=== PATIENT | male | born 1955 | race Caucasian/White ===

== ENCOUNTER 2018-03-21 12:44 | Emergency (ER) | payer MEDICARE, OTHER ==
[2018-03-21 12:57] VITALS: BP 168/91
--- NOTE | 2018-03-21 13:30 | ED Physician Documentation ---
Lower Extremity Injury - HISTORIAN Historian: patient, spouse - HPI Stated Complaint: L foot pain Chief Complaint: Lower Extremity Injury Onset: hours Where: home Severity: moderate Context: fall, twist, other ("popping" sensation) Associated Symptoms:: unable to bear weight Modifying Factors:: pain on movement - ROS CONST: no problems CVS/RESP: none GI/: denies: problems urinating, nausea, vomiting, other MS/SKIN/LYMPH: none NEURO: denies: headache, head injury, anxiety, depression - PAST HX Past History: other (Parkinson's; depression) Allergies/Adverse Reactions: Allergies Allergy/AdvReac Type Severity Reaction Status Date / Time codeine Allergy Verified 03/21/18 12:57 Home Medications: Ambulatory Orders Medication Instructions Recorded Carbidopa/Levodopa [Carbidopa-Levo 1 tab PO DAILY 03/21/18 25-100 mg Odt] - SOCIAL HX Smoking History: non-smoker - FAMILY HX Family History: denies: none - VITAL SIGNS Vital Signs: Vital Signs Temp Pulse Resp BP Pulse Ox 97.2 F L 82 17 168/91 95 03/21/18 14:00 03/21/18 14:00 03/21/18 14:00 03/21/18 14:00 03/21/18 14:00 - REVIEWED ASSESSMENTS Nursing Assessment Reviewed: Yes Vitals Reviewed: Yes Progress - Progress Progress: Updated patient on xray results; will place in walking boot. Patient refused pain medication at this time. Walking boot causing pain to nodule area on foot. Padded with cast padding; encouraged patient to use pain medication. Medicated with nubain and toradol IM. Follow up appointment made by while in ER for Sunday at [facility]. Instructed patient to return to ER if walking boot was too uncomfortable; will place in OCL splint. ED Results Lab/Radiology - Radiology Radiology Impressions: Examination: Plain film left foot History: LEFT FOOT, PAIN IN LEFT FOOT AFTER TRIPPING INJURY TODAY (Hx) Findings: 3 views of the left foot demonstrates osteopenia. Articular degenerative changes. Lucency involving the base of the 5th metatarsal. No soft tissue abnormalities. Impression: Fracture base 5th metatarsal. Osteopenia and degenerative changes. Electronically signed on March 21, 2018 1:24:29 PM CDT by: Cullen Braden - Orders Orders: ED Orders Category Date Time Status Walking Boot 1T Care 03/21/18 13:29 Active FOOT 3 VIEWS OR MORE [RAD] Stat Exams 03/21/18 Ordered Ketorolac Tromethamine [Toradol] Med 03/21/18 13:43 Discontinued 60 mg IM NOW ONE Nalbuphine HCl [Nubain] Med 03/21/18 13:44 Discontinued 10 mg IM NOW ONE Lower Extremities Injury Phy - Physical Exam General Appearance: mild distress Hips: bilateral hip: non-tender, normal inspection, normal range of motion Legs: bilateral: non-tender, normal inspection, normal range of motion Knees: bilateral: non-tender, normal inspection, normal range of motion Ankle: bilateral: non-tender, normal inspection, normal range of motion, no evidence of injury Foot: right foot: non-tender, normal inspection, normal range of motion, left foot: bone tenderness (5th metatarsal), deformity (nodule noted lateral left foot; "it's been there"), limited range of motion, pain (at base of 5th metatarsal), soft tissue tenderness, other (left foot with inward rotation) Gait: limited by pain Neuro/Vascular/Tendon: no vascular compromise, motor nml, sensation nml, ROM nml Head/ENT: nml inspection, pharynx nml Neck/Back: nml inspection, non-tender Resp/CVS: chest non-tender, breath sounds nml, heart sounds nml, no resp. distress, lungs clear, reg. rate & rhythm Abdomen: non-tender, pelvis stable Discharge Clincal Impression: Fracture of 5th metatarsal Qualifiers: Encounter type: initial encounter Fracture type: closed Fracture alignment: displaced Laterality: left Qualified Code(s): S92.352A - Displaced fracture of fifth metatarsal bone, left foot, initial encounter for closed fracture Referrals: Richy Urrutia MD [Primary Care Provider] - 2 Days Additional Instructions: No weight bearing on left foot without walking boot in place Rest Ice Elevation Call orthopedics for a follow up appointment in the next 2-3 days. Take your disc and report to the appointment. You may use Tylenol 650-1000mg every 4 hours as needed for pain. Limit dose to 4G per day. NO ibuprofen, aleve or naproxen until seen by ortho Return to the ER right away if: You cannot wiggle the toes The toes are pale or blue You are short of breath or have significant pain Condition: Stable Disposition: 01 HOME, SELF-CARE Decision to Admit: NO Decision Time: 13:50
[2018-03-21] MEDS ORDERED: KETOROLAC TROMETHAMINE 60 MG/2 ML VIAL IM ONE (13:43)
[2018-03-21] MEDS ORDERED: NALBUPHINE HCL 10 MG/1 ML IM ONE (13:44)
--- NOTE | 2018-03-21 17:50 | Diagnostic Imaging Report ---
ZULMA ELDRIDGE (AQUACULTURE PROGRAM DIRECTOR) - ER [facility] [address] [facility].[address] [address] Report Submission Date: March 21, 2018 1:24:29 PM CDT Patient Study Name: STEPH UGARTE Date: March 21, 2018 1:03:44 PM CDT Modality Type: DX Gender: M Description: LOWER EXTREMITY : 57 Institution: [facility] Physician: ZULMA ELDRIDGE (AQUACULTURE PROGRAM DIRECTOR) - ER Examination: Plain film left foot History: LEFT FOOT, PAIN IN LEFT FOOT AFTER TRIPPING INJURY TODAY (Hx) Findings: 3 views of the left foot demonstrates osteopenia. Articular degenerative changes. Lucency involving the base of the 5th metatarsal. No soft tissue abnormalities. Impression: Fracture base 5th metatarsal. Osteopenia and degenerative changes. Electronically signed on March 21, 2018 1:24:29 PM CDT by: Cullen BUSTOS
== END 2018-03-21 14:00 | disposition home or self-care (01) ==
LOC: ED 12:44
DX: S92.352A Displaced fracture of fifth metatarsal bone, left foot, initial encounter for closed fracture (principal); W19.XXXA Unspecified fall, initial encounter; Y92.009 Unspecified place in unspecified non-institutional (private) residence as the place of occurrence of the external cause; Y93.9 Activity, unspecified; Y99.9 Unspecified external cause status
CPT/HCPCS: 73630; J1885; J2300; L4360; 96372; 99284

== ENCOUNTER 2018-08-20 12:05 | Outpatient (CLI) | payer MEDICARE, OTHER ==
[2018-08-20 12:44] LABS: eGFR (Non-African) > 60
--- NOTE | 2018-08-21 06:59 | Diagnostic Imaging Report ---
GERMÁN DIA [facility] [address] [facility].[address] [address] Report Submission Date: Aug 20, 2018 6:56:57 PM CDT Patient Study Name: STEPH UGARTE Date: Aug 20, 2018 12:15:15 PM CDT Modality Type: DX Gender: M Description: CHEST : 57 Institution: [facility] Physician: GERMÁN DIA PA and lateral chest History: Short of breath PA and lateral chest dated August 20, 2018 is without prior radiographs for comparison. A battery pack projects over the mid left chest with leads projecting cephalad. The cardiomediastinal silhouette is normal in size and configuration. Pulmonary vascularity is normal. Lungs are clear. Impression: No acute cardiopulmonary process. Battery pack projecting over the mid left chest as described. Electronically signed on Aug 20, 2018 6:56:57 PM CDT by: Rekha BUSTOS
== END 2018-08-20 12:06 ==
LOC: LAB 12:05
PROVIDERS: ATTEND Physician Assistant
DX: R06.02 Shortness of breath (principal); Z13.6 Encounter for screening for cardiovascular disorders
CPT/HCPCS: 36415; 71046; 80053; 80061

== ENCOUNTER 2018-08-29 08:35 | Outpatient (CLI) | payer MEDICARE, OTHER ==
--- NOTE | 2018-08-29 14:47 | Diagnostic Imaging Report ---
CABRERA ESCOBAR [facility] [address] [facility] [address] [address] Report Submission Date: Aug 29, 2018 9:49:21 AM CDT Patient Study Name: STEPH UGARTE Date: Aug 29, 2018 9:01:20 AM CDT Modality Type: DX Gender: M Description: SPINE : 57 Institution: [facility] Physician: CABRERA ESCOBAR Examination: Plain film lumbar spine History: CHRONIC LOW BACK PAIN WITH RT SIDE PT STATES PAIN x6 MONTHS (Hx) Findings: 3 views of the lumbar spine demonstrate normal height. No anterior compression. Scattered osteophytes with disc space narrowing. Facet degenerative changes. No soft tissue abnormalities. Impression: Multilevel degenerative changes. No compression deformity. Electronically signed on Aug 29, 2018 9:49:21 AM CDT by: Cullen BUSTOS
--- NOTE | 2018-08-29 14:48 | Diagnostic Imaging Report ---
CABRERA ESCOBAR [facility] [address] [address] Report Submission Date: Aug 29, 2018 10:01:11 AM CDT Patient Study Name: STEPH UGARTE Date: Aug 29, 2018 8:54:29 AM CDT Modality Type: DX Gender: M Description: SPINE : 57 Institution: [facility] Physician: CABRERA ESCOBAR Examination: Cervical spine History: C-SPINE, NECK PAIN, Comparison exams: None available Findings: 4 views of the cervical spine demonstrate normal height and alignment. No anterior compression. No abnormal listhesis. Anterior fusion C6/C7. Osteophyte formation and disc space narrowing: Most pronounced at C5/6. No odontoid abnormality. No prevertebral abnormality Impression: Lower cervical fusion. Multilevel degenerative changes. Electronically signed on Aug 29, 2018 10:01:11 AM CDT by: Cullen BUSTOS
== END 2018-08-29 15:24 ==
LOC: RAD 08:35
PROVIDERS: ATTEND Family Medicine
DX: M54.2 Cervicalgia (principal); M54.5 Low back pain
CPT/HCPCS: 72040; 72100

== ENCOUNTER 2018-09-05 09:50 | Emergency (ER) | payer MEDICARE, OTHER ==
[2018-09-05] MEDS: DEXAMETHASONE SOD PHOS 4 MG/ML VIAL IVP ONE (10:16)
[2018-09-05] MEDS: ORPHENADRINE CITRATE 60 MG/2ML IV ONE (10:18)
--- NOTE | 2018-09-05 10:18 | ED Physician Documentation ---
Low Back Pain - HISTORIAN Historian: patient - HPI Stated Complaint: Right Leg Cramping Chief Complaint: Low Back Pain/ Injury Additional Information: Patient, with a past medical history of Parkinsons and chronic low back pain, p resents to ED with a 2 day history of low cramping back pain radiating into right leg. He rates his pain 8/10, worsening with standing, better with supine position. He denies any injury,however, his states he has been falling more lately. He say Dr. Whaley on Sunday and had xrays done, however, he does not know the results of those yet. History: neck pain, back pain Onset: days ago (2) Duration: continues in ED Recent Injury: No Context: other (chronic) Where: home Severity: moderate Quality: other (cramping 8/10) - ROS CONST: no problems - PAST HX Past History: denies: arthritis, compression fracture(s) Other History: denies: aortic aneurysm Surgeries/Procedures: denies: back surgery Allergies/Adverse Reactions: Allergies Allergy/AdvReac Type Severity Reaction Status Date / Time codeine Allergy Verified 09/05/18 10:08 Home Medications: Ambulatory Orders Medication Instructions Recorded Carbidopa/Levodopa [Carbidopa-Levo 1 tab PO DAILY 03/21/18 25-100 mg Odt] - SOCIAL HX Smoking History: non-smoker Alcohol Use: none Drug Use: none - FAMILY HX Family History: none - VITAL SIGNS Vital Signs: Vital Signs Temp Pulse Resp BP Pulse Ox 97 F L 82 18 144/75 96 09/05/18 09:50 09/05/18 09:50 09/05/18 09:50 09/05/18 09:50 09/05/18 09:50 - REVIEWED ASSESSMENTS Nursing Assessment Reviewed: Yes Vitals Reviewed: Yes ED Results Lab/Radiology - Radiology Radiology Impressions: Examination: Cervical spine History: C-SPINE, NECK PAIN, Comparison exams: None available Findings: 4 views of the cervical spine demonstrate normal height and alignment. No anterior compression. No abnormal listhesis. Anterior fusion C6/C7. Osteophyte formation and disc space narrowing: Most pronounced at C5/6. No odontoid abnormality. No prevertebral abnormality Impression: Lower cervical fusion. Multilevel degenerative changes. Electronically signed on Aug 29, 2018 10:01:11 AM CDT by: Cullen Braden Examination: Plain film lumbar spine History: CHRONIC LOW BACK PAIN WITH RT SIDE PT STATES PAIN x6 MONTHS (Hx) Findings: 3 views of the lumbar spine demonstrate normal height. No anterior compression. Scattered osteophytes with disc space narrowing. Facet degenerative changes. No soft tissue abnormalities. Impression: Multilevel degenerative changes. No compression deformity. Electronically signed on Aug 29, 2018 9:49:21 AM CDT by: uCllen Braden - Orders Orders: ED Orders Category Date Time Status Place IV Lock 1T Care 09/05/18 10:09 Active CMP Routine Lab 09/05/18 Ordered Dexamethasone Sod Phosphate [Decadron] Med 09/05/18 10:10 Discontinued 6 mg IVP NOW ONE Orphenadrine Citrate [Norflex] Med 09/05/18 10:10 Discontinued 60 mg IV NOW ONE Low Back Pain/Injury - Physical Exam General Appearance: no acute distress, alert EENT: ZENOBIA Neck: non-tender, painless ROM Resp/CVS: chest non-tender, breath sounds nml, heart sounds nml Abdomen: non-tender, other (soft) Back: muscle spasm (right gluteal region). No: CVA tenderness Rectal/Genital: other (deferred) Straight Leg Raising: Negative Left, Negative Right Neuro/Psych: oriented x3 Skin: warm/dry Extremities: non-tender, no evidence of injury (right ankle brace), no edema Discharge Clincal Impression: Low back pain Qualifiers: Chronicity: acute Back pain laterality: right Sciatica presence: with sciatica Sciatica laterality: sciatica of right side Qualified Code(s): M54.41 - Lumbago with sciatica, right side Referrals: Richy Urrutia MD [Primary Care Provider] - 2 Days Additional Instructions: Follow up with Dr. Urrutia next week. Take Flexeril sparingly, this medication will affect your balance. Condition: Stable Disposition: HOME, SELF-CARE Decision to Admit: NO Date of Decison to Admit: 09/05/18 Decision Time: 11:22
[2018-09-05 11:42] VITALS: BP 130/68
[2018-09-05 13:55] LABS: eGFR (Non-African) > 60
== END 2018-09-05 11:32 | disposition home or self-care (01) ==
LOC: ED 09:50
DX: M54.5 Low back pain (principal); M54.41 Lumbago with sciatica, right side
CPT/HCPCS: 80053; 83735; J1100; J2360; 96374; 96375; 99284; S1016

== ENCOUNTER 2018-09-24 13:25 | Outpatient (CLI) | payer MEDICARE, OTHER ==
[~2018-09-24 13:25] MED LIST: 0.9 % SODIUM CHLORIDE PF 10 ML VIAL IJ ONE; LIDOCAINE HCL 2% PF 100MG/5ML VIAL IJ ONE; SALINE FLUSH 10 ML DISP.SYRIN IVF ONE; TRIAMCINOLONE ACETONID 40MG/ML VIAL ONE
--- NOTE | 2018-09-30 15:44 | HISTORY AND PHYSICAL REPORT ---
REFERRING PHYSICIAN: Dr. Richy Urrutia HISTORY OF PRESENT ILLNESS: I had the opportunity of seeing Misael Newsome today as an outpatient at [facility]. This is a very nice 62-year-old white male with a 3-month history of right-sided lower extremity pain. He says that the pain has gotten severe and so bad he cannot weight bear and he cannot walk. He has a history of Parkinson disease. He has a deep brain stimulator. We have x- ray imaging but no MRI or CT studies. He had a right trochanteric bursa injection but had minimal improvement. He denies left lower extremity pain. He did develop a left foot drop which they credit to the Parkinson disease and deep brain stimulator. He has no pain on the left. He has no incontinence of bowel or bladder. He complains of pain in the right buttocks, lateral thigh, lateral to anterior calf and at times, the foot. PAST MEDICAL HISTORY: 1. History of Parkinson disease. 2. Depression. PAST SURGICAL HISTORY: 1. C5-C6 ACDF in approximately 2005 at [facility]. 2. Bilateral biceps tendon repair. 3. Right knee arthroscopy. 4. Deep brain stimulator placed. DAILY MEDICATIONS: 1. Zoloft 100 mg daily. 2. Carbidopa/Levodopa 25/100 mg once daily. ALLERGIES: Codeine causing nausea and vomiting. SOCIAL HISTORY: He is a former smoker for 20 years. He quit approximately 30 years ago. He drinks alcoholic drink per day. Denies recreational drug use. He has been for 39 years. He has 2 children and lives at home with his spouse. He completed the 12th grade. Unknown previous occupation. He is not currently employed. He retired in 2013. He is disabled due to Parkinson disease. FAMILY HISTORY: Family history includes his father with diabetes. Mother with heart disease and pancreatic cancer. REVIEW OF SYSTEMS: In the last month or so, he reports shortness of breath. Pain is worse with standing, bending, walking, twisting, getting up from a chair, getting up in the morning, and in any position for too long. Pain is improved with sitting and lying down. PHYSICAL EXAMINATION: General: The patient is well nourished, well developed, and in no apparent distress. Awake, alert, and oriented. HEENT: Pupils are equal, round, and reactive to light and accommodation. Extraocular movements intact. No facial droop. Neck: There is full range of motion of the cervical spine. No evidence of adenopathy. Thyroid is nontender, not enlarged. Carotids are without bruits. Chest: Clear to auscultation bilaterally. Normal chest excursion. Heart: Regular rate and rhythm without murmur. Abdomen: Benign. Normoactive bowel sounds. Motor/sensory: Intact in the upper and lower extremities. Moves all extremities freely. Back: Negative straight leg raise. Negative femoral nerve stretch. Negative CAROLE. Reflexes are diminished at 1/4 on the right and 1/4 on the left. Dorsal flexion and plantar flexion of the feet are intact. DIAGNOSTIC STUDIES: X-ray reveals a severely degenerative disc at L4-L5 and L5-S1 and a grade 1 retrolisthesis of L3-L4. ASSESSMENT: Suspect spinal stenosis. Right lower extremity radiculitis. PLAN: 1. We will place a palliative right L4-L54 versus L5-S1 epidural steroid injection today. 2. I will order a CT of this gentleman's spine. 3. Follow him up in the near future. Thank you very much for allowing me to take part in the care of this nice gentleman. I appreciate the opportunity to take part in the care of your patients. cc: Dr. Richy BUSTOS
--- NOTE | 2018-09-30 15:49 | LESI WITH FLUORO ---
OPERATIVE PROCEDURE: L5-S1 epidural steroid injection with fluoroscopic guidance. DESCRIPTION OF PROCEDURE: The risks and benefits were discussed with the patient including the risk of infection, bleeding, nerve injury, and headache, as well as the risks of steroid exposure causing hyperglycemia, hypertension, osteoporosis, or increased infectious risks. The patient understood these risks and agreed to proceed. Consent was obtained prior to the procedure. The patient was placed in the prone position on the fluoroscopy table with a pillow underneath the abdomen to afford anterior flexion of the lumbar spine. The low back was cleaned and a sterile drape was applied. A Tuohy epidural needle was advanced with normal saline loss of resistance technique and direct fluoroscopic guidance with a right paramedian approach at the L5-S1 level. On obtaining loss of resistance to normal saline, it was verified that there was no aspiration of CSF or blood. Furthermore, the needle tip location was verified with lateral and AP fluoroscopic views. Omnipaque 240 myelogram dye were injected through the epidural needle. The distribution of the dye was noted to be within the desired distribution within the lumbar epidural space. The medication was injected into the epidural space. The stylet was replaced in the needle and the needle was removed from the back. The patient tolerated the procedure well. The back was cleaned and a bandage was applied over the injection site. The patient was monitored for 20 minutes following the procedure. during this time the vital signs remained stable and the patient experienced no adverse sequelae. The patient was discharged in good condition. ASSESSMENT: Right radiculitis. PLAN: L5-S1 epidural steroid injection with fluoroscopic guidance today. FOLLOWUP: Return to clinic if problems develop or worsen. cc: Dr. Richy BUSTOS
== END 2018-09-24 13:26 ==
LOC: OUT 13:25
PROVIDERS: ATTEND Anesthesiology Pain Medicine
DX: M54.16 Radiculopathy, lumbar region (principal)
CPT/HCPCS: 62323; 99203; G0463; J2001; J3301; Q9966

== ENCOUNTER 2018-10-22 10:28 | Outpatient (CLI) | payer MEDICARE, OTHER ==
[~2018-10-22 10:28] MED LIST changes: -0.9 % SODIUM CHLORIDE PF 10 ML VIAL IJ ONE; +BUPIVACAINE HCL 0.25% (2.5MG/ML) PF 10ML VIAL IV ONE; +LIDOCAINE HCL 2% MDV 400MG/20ML VIAL ONE; -LIDOCAINE HCL 2% PF 100MG/5ML VIAL IJ ONE; -SALINE FLUSH 10 ML DISP.SYRIN IVF ONE
--- NOTE | 2018-11-01 12:56 | LUMBAR TFESI ---
SUBJECTIVE: Mr. Newsome follows up today. He continues to have right-sided radiculopathic pain at the L5 dermatomal distribution. He has a history of Parkinson disease. He has a deep brain stimulator and I had ordered a CAT scan of the lumbar spine which he did not get. It think this is because his was afraid that he could not have a CAT scan with the stimulator in. He says that the L5-S1 epidural injection lasted a couple of days and then the pain began returning and I am concerned he has neuroforaminal stenosis based on his presentation. He cannot stand up straight and he cannot lay flat because of cramping in the posterior gluteal area, lateral thigh, and lateral calf. 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 He does not currently have a foot drop on the right side on re-examination today. PROCEDURE: Right L5 lumbar transforaminal epidural steroid injection with fluoroscopic guidance. DESCRIPTION OF PROCEDURE: The risks and benefits were discussed with the pt. including the risks of infection, bleeding, nerve injury, and headache, as well as the risks of steroid exposure causing hyperglycemia, hypertension, osteoporosis, or increased infectious risk. The patient understood these risks and agreed to proceed. Consent was obtained. The patient was placed in the prone position on the fluoroscopy table with a pillow underneath the abdomen to afford anterior flexion of the lumbar spine. The low back was cleaned and a sterile drape was applied. AP, lateral, and oblique fluoroscopic views were obtained identifying the L5 vertebral body and L5 transverse process. An oblique view of the transverse process and pedicles was obtained. A spinal needle was advanced under direct-beam (barrel view) fluoroscopic guidance until the tip contacted the superior-most aspect of the S1 superior articulating process. The needle was then directed superiorly and medially a few millimeters towards the intervertebral foramen. A lateral fluoroscopic view was obtained and the needle was advanced into the inferior/anterior aspect of the L5 neural foramen (L5-S1 intervertebral foramen) epidural space. It was verified that there was no aspiration of CSF or blood. Omnipaque 240 myelogram dye was injected through the needle. The dye was noted to course in the desired distribution within the lumbar foramen epidural space. The medication was injected into the epidural space. The stylet was replaced in the needle and the needle was removed from the back. The patient tolerated the procedure well. The back was cleaned and a bandage was applied over the injection site. The patient was monitored for 20 minutes following the procedure. During this time the vital signs remained stable and the patient experienced no adverse sequelae. The patient was discharged home in good condition. ASSESSMENT: L5 radiculitis failing interlaminar epidural injection. PLAN: I am going to place a right L5 transforaminal nerve block today. Plan on obtaining a new CT study today. FOLLOWUP: Follow up with me next month. cc: Dr. Richy BUSTOS
== END 2018-10-22 11:30 ==
LOC: OUT 10:28
PROVIDERS: ATTEND Anesthesiology Pain Medicine
DX: M54.16 Radiculopathy, lumbar region (principal)
CPT/HCPCS: 64483; J3301; J3490; Q9966